=== PATIENT | female | born 1930 | race African-American/Black ===

== ENCOUNTER 2017-05-02 22:09 | Emergency (ER) | payer OTHER ==
[~2017-05-02] VITALS: Ht 162.6 cm; Wt 63.6 kg
[2017-05-02 22:26] VITALS: BP 173/77; PULSE 75; RESP 20; TEMP 98.7; O2SAT 96
--- NOTE | 2017-05-02 22:36 | PD ---
HPI Chief Complaint: lower extremity edema Time Seen by Provider: 22:26 Travel History International Travel<30 days: No Contact w/Intl Traveler<30days: No History of Present Illness HPI The patient is an 86 year old female who presents to the [facility] emergency department with a history of reportedly developing lower extremity edema that began 2-3 days ago. The patient reports that she does have a history of swelling in her legs that comes and goes. She also reports that occasionally she will get redness in her legs associated with the swelling. The patient is brought in by ambulance services. Ambulance services reported that the patient's family was concerned that she was more tremulous today. They reported to ambulance services that the patient has a history of tremulousness in the past that was thought to be related to her exacerbated by urinary tract infection. On review systems, the patient denies having any changes in her appetite. She reports that she has been eating and drinking well. She denies having any known fevers or chills, cough or congestion, dysuria, hematuria, urinary urgency, or frequency. The patient denies having any prior history of myocardial infarction or congestive heart failure. She denies having any chest pain, chest pressure, shortness of breath, abdominal pain, vomiting, diarrhea, one-sided weakness, facial droop, difficulty with word finding ability, or numbness or tingling to her extremities. The patient' s blood sugar prior to arrival was noted to be 258. She reports that she did administer her insulin earlier this evening. 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 Past Surgical History Narrative Surgical The patient's past surgical history is significant for cataract surgery on her eyes bilaterally, history of cholecystectomy. Social History Alcohol Use: No Tobacco Use: No Substance Use: No Allergies-Medications (Allergen,Severity, Reaction): Coded Allergies: Penicillins (Verified Allergy, Unknown, 05/02/17) Reported Meds & Prescriptions Reported Meds & Active Scripts Active Reported Spironolactone 50 Mg Tab 50 Mg PO DAILY Novolin N Inj (Insulin Human NPH) 1,000 Unit/10 Ml Vial 0 SQ DIRECTED Sliding Scale As Directed. Glimepiride 1 Mg Tab 1 Mg PO BID Take with breakfast or first main meal Calcitriol 0.25 Mcg Cap 0.25 Mcg PO DAILYMONWEDFRI Sodium Bicarbonate 650 Mg Tab 650 Mg PO BID Simvastatin 20 Mg Tab 20 Mg PO DAILY Clonidine (Clonidine HCl) 0.2 Mg Tab 0.2 Mg PO BID Norvasc (Amlodipine Besylate) 10 Mg Tab 10 Mg PO DAILY Allopurinol 100 Mg Tab 100 Mg PO DAILY Torsemide 20 Mg Tab 20 Mg PO DAILY Xanax (Alprazolam) 0.5 Mg Tab 0.5 Mg PO Q6H PRN Mupirocin Topical (Mupirocin) 2 % Oint 1 Applic TOPICAL BID Erythromycin Opth Oint 5 Mg/Gm Oint 1 Applic EACH EYE BID Metoprolol Succinate ER 24 HR (Metoprolol Succinate) 100 Mg Tab 100 Mg PO DAILY Review of Systems Except as stated in HPI: all other systems reviewed are Neg General / Constitutional: No: Fever Eyes: No: Visual changes HENT: No: Headaches Cardiovascular: Positive: Edema, No: Chest Pain or Discomfort, Dyspnea on exertion Respiratory: No: Cough, Shortness of Breath Gastrointestinal: No: Nausea, Vomiting, Diarrhea, Abdominal Pain Genitourinary: No: Urgency, Frequency, Dysuria, Flank Pain Musculoskeletal: No: Pain Skin: No Rash Neurologic: Positive: Tremor, No: Weakness, Focal Abnormalities, Change in Mentation, Slurred Speech, Sensory Disturbance Psychiatric: No: Depression Endocrine: No: Polydipsia Hematologic/Lymphatic: No: Easy Bruising Physical Exam Narrative General: The patient is a well-developed well-nourished female in no acute distress. Head and Neck exam: Head is normocephalic atraumatic. Eyes: EOMI, pupils are equal round and reactive to light. Nose: Midline septum with pink mucous membranes Mouth: Dentition unremarkable. Moist mucus membranes. Posterior oropharynx is not erythematous. No tonsillar hypertrophy. Uvula midline. Airway patent. Neck: No palpable lymphadenopathy. No nuchal rigidity. No thyromegaly. Cardiovascular: Regular rate and rhythm without murmurs, gallops, or rubs. Lungs: Clear to auscultation bilaterally. No wheezes, rhonchi, or rales. Abdomen: Soft, without tenderness to palpation in all 4 quadrants of the abdomen. No guarding, rebound, or rigidity. Normal bowel sounds are audible. No tenderness on palpation of McBurney's point. Extremities: No clubbing or cyanosis. The patient has 1-2+ pitting edema bilateral lower extremities. 2+ pulses in all 4 extremities. Slight erythema to bilateral lower extremities from distal trevino down bilaterally. No tenderness on palpation. No open wounds. Back: No spinous process tenderness to palpation. No costovertebral angle tenderness to palpation. Neurologic Exam: Grossly nonfocal. Skin Exam: No rash noted. Intact skin that is warm and dry. Data Data Last Documented VS Vital Signs Date Time Temp Pulse Resp B/P (MAP) Pulse Ox O2 Delivery O2 Flow Rate FiO2 05/02/17 22:26 98.7 75 20 173/77 (109) 96 Orders Orders Electrocardiogram (05/02/17 22:27) Complete Blood Count With Diff (05/02/17 22:27) Basic Metabolic Panel (Bmp) (05/02/17 22:27) B-Type Natriuretic Peptide (05/02/17 22:27) Urinalysis - C+S If Indicated (05/02/17 22:27) Cath For Specimen (05/02/17 22:27) Chest, Single Ap (05/02/17 22:27) Iv Access Insert/Monitor (05/02/17 22:27) Ecg Monitoring (05/02/17 22:27) Oximetry (05/02/17 22:27) Us Leg Venous Doppler Bilat (05/02/17 22:36) Labs Laboratory Tests Test 05/02/17 23:16 White Blood Count 9.6 TH/MM3 Red Blood Count 3.92 MIL/MM3 Hemoglobin 12.4 GM/DL Hematocrit 36.9 % Mean Corpuscular Volume 94.0 FL Mean Corpuscular Hemoglobin 31.6 PG Mean Corpuscular Hemoglobin Concent 33.6 % Red Cell Distribution Width 14.5 % Platelet Count 277 TH/MM3 Mean Platelet Volume 8.9 FL Neutrophils (%) (Auto) 67.5 % Lymphocytes (%) (Auto) 18.3 % Monocytes (%) (Auto) 9.9 % Eosinophils (%) (Auto) 3.6 % Basophils (%) (Auto) 0.7 % Neutrophils # (Auto) 6.5 TH/MM3 Lymphocytes # (Auto) 1.8 TH/MM3 Monocytes # (Auto) 1.0 TH/MM3 Eosinophils # (Auto) 0.3 TH/MM3 Basophils # (Auto) 0.1 TH/MM3 CBC Comment DIFF FINAL Differential Comment Urine Color LIGHT-YELLOW Urine Turbidity CLEAR Urine pH 5.0 Urine Specific [place] 1.008 Urine Protein TRACE mg/dL Urine Glucose (UA) NEG mg/dL Urine Ketones NEG mg/dL Urine Occult Blood SMALL Urine Nitrite NEG Urine Bilirubin NEG Urine Urobilinogen LESS THAN 2.0 MG/DL Urine Leukocyte Esterase NEG Urine RBC 3 /hpf Urine WBC LESS THAN 1 /hpf Urine Hyaline Casts 9 /lpf Urine Mucus FEW /lpf Microscopic Urinalysis Comment CULT NOT INDICATED Blood Urea Nitrogen 38 MG/DL Creatinine 2.55 MG/DL Random Glucose 232 MG/DL Calcium Level 9.4 MG/DL Sodium Level 137 MEQ/L Potassium Level 4.1 MEQ/L Chloride Level 100 MEQ/L Carbon Dioxide Level 27.5 MEQ/L Anion Gap 10 MEQ/L Estimat Glomerular Filtration Rate 18 ML/MIN B-Type Natriuretic Peptide 73 PG/ML MDM Medical Decision Making Medical Screen Exam Complete: Yes Emergency Medical Condition: Yes Medical Record Reviewed: Yes Interpretation(s) Last Impressions Lower Extremity Ultrasound 05/02/172235 Signed Impressions: Service Date/Time: Tuesday, May 02, 2017 22:32 - CONCLUSION: 1. The patient's body habitus generates some limitations to this exam. 2. No DVT. Parrish Garcia Jr., MD Chest X-Ray 05/02/172226 Signed Impressions: Service Date/Time: Tuesday, May 02, 2017 23:10 - CONCLUSION: No acute disease. Parrish Garcia Jr., MD Differential Diagnosis Cellulitis, versus lower extremity edema related to valvular abnormalities of the veins of the legs, versus DVT, versus hypoalbuminemia, versus congestive heart failure, versus renal failure Narrative Course During the course of the patients emergency department visit, the patients history, examination, and differential diagnosis were reviewed with the patient. The patient had IV access obtained and blood work sent for analysis. The patient was placed on a cardiac technician with oximetry and blood pressure monitoring. An ECG was ordered. A chest x-ray was ordered, ultrasound of bilateral lower extremities was ordered to evaluate and rule out DVT. The patient had an ECG done on arrival. The patient's ECG shows a sinus rhythm heart rate of 66, intraventricular conduction delay is noted with a QRS duration of 133 ms, QTC [address] segment elevation is noted. Downsloping ST segments are noted in lead 1, aVL. The patients laboratory studies were reviewed and remarkable for a white count of 9.6, hemoglobin 12.4, platelets 277 with 9.9 monocytes no elevated white blood cell count to suggest a cellulitis. basic metabolic profile is remarkable for a BUN of 38, creatinine 2.55, glucose 232, urinalysis shows occult blood but a small, otherwise unremarkable. BNP is 73. After further discussion of the patient's laboratory studies with the patient's daughter, she reports that the patient does have a history of renal insufficiency. Radiology studies were reviewed and remarkable for a chest x-ray that shows no evidence of acute cardiopulmonary disease, ultrasound of bilateral lower extremity shows no evidence of DVT. The patient is resting comfortably and feels better, is alert and in no distress. The patients results and examination findings were discussed with the patient. The repeat examination is unremarkable and benign. The history, exam, diagnostic testing, and current condition do not suggest any significant pathology to warrant further testing, continued ED treatment, admission, or surgical evaluation at this point. The vital signs have been stable. The patient does not have uncontrollable pain, intractable vomiting, or other significant symptoms. The patient's condition is stable and appropriate for discharge. The patient will pursue further outpatient evaluation with a primary care physician or other designated or consulting physician as indicated in the discharge instructions. The patient expressed understanding and was agreeable with this plan. Diagnosis Primary Impression: Lower extremity edema Referrals: Primary Care Physician 2 days Patient Instructions: General Instructions, Leg Edema (ED) Additional Instructions: The patient's daughter was instructed regarding the importance of having her elevate her legs frequently, avoid salt in her diet by limiting her salt intake to less than 2 g per day. She was instructed to wear compression stockings frequently while she is up throughout the day. Med/Other Pt SpecificInfo: No Change to Meds Disposition: 01 DISCHARGE HOME Condition: Stable Meaghan Roland MD May 02, 2017 22:36
--- NOTE | 2017-05-02 23:15 | RADRPT ---
EXAM DATE/TIME: 05/02/2017 22:32 [facility] COMPARISON: No previous studies available for comparison. INDICATIONS : Bilateral leg edema. MEDICAL HISTORY : Hypercholesterolemia. Hypertension. Gastroesophageal reflux disease. Diabetes. SURGICAL HISTORY : Cataract surgery. ENCOUNTER: Initial ACUITY: 1 week PAIN SCORE: 7/10 LOCATION: Bilateral legs. TECHNIQUE: Venous ultrasound of the left and right leg was performed from the inguinal ligament to the proximal calf. Real-time, color Doppler and spectral tracing, compression and augmentation techniques were us ed. FINDINGS: RIGHT LEG: There is normal compressibility of the deep venous system from the inguinal region to the proximal ca lf. No echogenic clot is seen in the lumen of the common femoral, femoral, popliteal, and posterior tibial veins. There is a normal response of the venous system to proximal and distal augmentation an d respiration. There are limited views of the distal superficial femoral vein and trifurcation veins due to the patient's body habitus. LEFT LEG: There is normal compressibility of the deep venous system from the inguinal region to the proximal ca lf. No echogenic clot is seen in the lumen of the common femoral, femoral, popliteal, and posterior tibial veins. There is a normal response of the venous system to proximal and distal augmentation an d respiration. There are limited views of the distal superficial femoral vein and trifurcation veins due to the patient's body habitus. CONCLUSION: 1. The patient's body habitus generates some limitations to this exam. 2. No DVT. Parrish Garcia Jr., MD on May 02, 2017 at 23:10 Board Certified Radiologist. This report was verified electronically.
[2017-05-02] MEDS ORDERED: CALC0.25 PO (23:29)
[2017-05-02] MEDS ORDERED: NOVONP2 SQ (23:29)
[2017-05-02] MEDS ORDERED: SIMV20TA PO (23:29)
[2017-05-02] MEDS ORDERED: SPIR50TA PO (23:29)
[2017-05-02] MEDS ORDERED: ALLO100T PO (23:29)
[2017-05-02] MEDS ORDERED: ERYTOIN10 EACH EYE (23:29)
[2017-05-02] MEDS ORDERED: AMLO10 PO (23:29)
[2017-05-02] MEDS ORDERED: MUPI2OIN TOPICAL (23:29)
[2017-05-02] MEDS ORDERED: SODI650T PO (23:29)
[2017-05-02] MEDS ORDERED: ALPR.5 PO (23:29)
[2017-05-02] MEDS ORDERED: TORS20TA PO (23:29)
[2017-05-02] MEDS ORDERED: GLIM1TAB PO (23:29)
[2017-05-02] MEDS ORDERED: CLON0.2T PO (23:29)
[2017-05-02] MEDS ORDERED: METO100T9 PO (23:29)
[2017-05-02 23:35] LABS: BLOOD, URINE SMALL (NEG); COMMENT (UR) CULT NOT INDICATED; CULTURE IF INDICATED CULT NOT INDICATED; GLUCOSE,URINE NEG (NEG); HYALINE CAST, URINE 9 /lpf (RARE); KETONE, URINE NEG (NEG); MUCUS URINE FEW /lpf (OCC); NITRITE,URINE NEG (NEG); URINE COLOR LIGHT-YELLOW (YELLW/STRAW)
[2017-05-02 23:37] LABS: AUTOMATED NEUTROPHIL # 6.5 TH/MM3 (1.8-7.7); BASOPHIL # 0.1 TH/MM3 (0-0.2); BASOPHIL % 0.7 % (0.0-2.0); EOSINOPHIL # 0.3 TH/MM3 (0-0.4); EOSINOPHIL % 3.6 % (0.0-4.0); HEMATOCRIT 36.9 % (35.0-46.0); HEMO FLAGS DIFF FINAL; LYMPH % 18.3 % (9.0-44.0); LYMPHOCYTE # 1.8 TH/MM3 (1.0-4.8); MEAN CORPUSCULAR HEMOGLOBIN 31.6 PG (27.0-34.0); MEAN CORPUSCULAR HGB CONC 33.6 % (32.0-36.0); MONO % 9.9 % (0.0-8.0); NEUT % 67.5 % (16.0-70.0); PLATELET COUNT 277 TH/MM3 (150-450); RED BLOOD COUNT 3.92 MIL/MM3 (4.00-5.30); RED CELL DISTRIBUTION WIDTH 14.5 % (11.6-17.2); WHITE BLOOD COUNT 9.6 TH/MM3 (4.0-11.0)
--- NOTE | 2017-05-02 23:38 | RADRPT ---
EXAM DATE/TIME: 05/02/2017 23:10 [facility] COMPARISON: No previous studies available for comparison. INDICATIONS : Syncopal episode at a wedding. MEDICAL HISTORY : None. SURGICAL HISTORY : None. ENCOUNTER: Initial ACUITY: 1 day PAIN SCORE: 0/10 LOCATION: Bilateral chest FINDINGS: A single view of the chest demonstrates the lungs to be symmetrically aerated without evidence of mas s, infiltrate or effusion. The cardiomediastinal contours are unremarkable. Osseous structures are intact. CONCLUSION: No acute disease. Parrish Garcia Jr., MD on May 02, 2017 at 23:36 Board Certified Radiologist. This report was verified electronically.
[2017-05-02 23:47] LABS: BICARBONATE 27.5 MEQ/L (21.0-32.0); POTASSIUM 4.1 MEQ/L (3.5-5.1)
--- NOTE | 2017-05-03 14:21 | EKG ---
Date Performed: 05/02/2017 Time Performed: 23:42:29 PTAGE: 86 years EKG: Sinus rhythm BORDERLINE LEFT AXIS DEVIATION INTRAVENTRICULAR CONDUCTION DELAY POSSIBLE LEFT VENTRICULAR HYPERTROP HY AND ST-T CHANGE ABNORMAL ECG NO PREVIOUS TRACING DOCTOR: Toan Sánchez Interpretating Date/Time 05/03/2017 14:20:27
== END 2017-05-03 03:26 | disposition home or self-care (01) ==
LOC: NEPE 22:09
DX: R60.0 Localized edema (principal); I10 Essential (primary) hypertension; I50.9 Heart failure, unspecified; R94.31 Abnormal electrocardiogram [ECG] [EKG]; E11.9 Type 2 diabetes mellitus without complications
CPT/HCPCS: 71010; 80048; 81001; 83880; 85025; 93005; 93970; 99285; P9612